=== PATIENT | male | born 1990 | race Caucasian/White ===

== ENCOUNTER 2018-03-18 23:18 | Emergency (ER) | payer BC ==
[2018-03-18] MEDS ORDERED: SUMAtriptan 6 MG/0.5 ML SDV SUBCUT ONE (23:55)
[2018-03-18] MEDS ORDERED: Ondansetron 4 MG Tab.DIS PO ONE (23:55)
--- NOTE | 2018-03-19 00:12 | EDM.PDOC ---
ED HPI GENERAL MEDICAL PROBLEM - General Chief Complaint: Gastrointestinal Problem Stated Complaint: HEADACHE Time Seen by Provider: 03/18/18 23:30 Source of Information: Reports: Patient, Family History Limitations: Reports: No Limitations - History of Present Illness INITIAL COMMENTS - FREE TEXT/NARRATIVE: 27-year-old male who gets to vascular headaches roughly a year, developed some posterior headache about 2 hours ago and it's now expanded over the top of his head and to the right side, throbbing with nausea and vomiting. No fevers or chills, no trauma. No visual symptoms. Onset: Sudden (2 hours ago) Location: Reports: Head Severity: Moderate Associated Symptoms: Reports: Nausea/Vomiting. Denies: Confusion, Fever/Chills , Shortness of Breath Abdominal Pain Score (Numeric/FACES): 5 headache Pain Score (Numeric/FACES): 7 - Related Data Allergies Allergy/AdvReac Type Severity Reaction Status Date / Time Penicillins Allergy Other Verified 03/18/18 23:37 Home Meds: Home Meds NK [No Known Home Meds] 03/18/18 [History] Past Medical History - Past Surgical History GI Surgical History: Reports: Appendectomy, Hernia, Inguinal Social & Family History - Tobacco Use Smoking Status *Q: Current Every Day Smoker Years of Tobacco use: 8 Packs/Tins Daily: 0.5 - Caffeine Use Caffeine Use: Reports: Soda - Recreational Drug Use Recreational Drug Use: No ED ROS GENERAL - Review of Systems Review Of Systems: See Below Constitutional: Denies: Fever, Chills Respiratory: Denies: Shortness of Breath Cardiovascular: Denies: Chest Pain GI/Abdominal: Reports: Nausea, Vomiting. Denies: Abdominal Pain Skin: Reports: No Symptoms Neurological: Reports: Dizziness, Headache ED EXAM, GENERAL - Physical Exam Exam: See Below Exam Limited By: No Limitations General Appearance: Alert, Mild Distress (Uncomfortable) Eye Exam: Bilateral Eye: EOMI, PERRL Head: Atraumatic Respiratory/Chest: No Respiratory Distress Neurological: Alert, Oriented, No Motor/Sensory Deficits Psychiatric: Normal Affect, Normal Mood Skin Exam: Warm, Dry Course - Vital Signs Last Recorded V/S: Last Vital Signs Temp 96.4 F 03/18/18 23:35 Pulse 78 03/18/18 23:35 Resp 16 03/18/18 23:35 BP 119/83 03/18/18 23:35 Pulse Ox 97 03/18/18 23:35 - Orders/Labs/Meds Meds: Medications Discontinued Medications Generic Name Dose Route Start Last Admin Trade Name Ye PRN Reason Stop Dose Admin Ondansetron HCl 4 mg 03/18/18 23:55 03/19/18 00:12 Zofran Odt PO 03/18/18 23:56 4 mg ONETIME ONE Administration Sumatriptan Succinate 6 mg 03/18/18 23:55 03/19/18 00:12 Imitrex SUBCUT 03/18/18 23:56 6 mg ONETIME ONE Administration - Re-Assessments/Exams Free Text/Narrative Re-Assessment/Exam: 03/19/18 00:11 Patient was given 6 mg of subcutaneous Imitrex and 4 mg of sublingual Zofran. 03/19/18 01:04 45 minutes after the medications his pain was almost gone and he was sleeping. He was ready to be discharged. Departure - Departure Time of Disposition: 01:11 Disposition: Home, Self-Care 01 Condition: Good Clinical Impression: Migraine Qualifiers: Migraine type: without aura Status migrainosus presence: without status migrainosus Intractability: not intractable Qualified Code(s): G43.009 - Migraine without aura, not intractable, without status migrainosus - Discharge Information Instructions: Migraine Headache, [id number] Referrals: PCP,None [Primary Care Provider] - Forms: ED Department Discharge Care Plan Goals: Rest tonight, advance diet and activity as tolerated. Consider Imitrex in the future, you seemed to respond well to that tonight. Discuss this with your primary doctor when you return home, or return tomorrow if worsening and you need further help before leaving.
== END 2018-03-19 01:11 | disposition home or self-care (01) ==
LOC: JP.ED 23:18
DX: G43.009 Migraine without aura, not intractable, without status migrainosus (principal); F17.210 Nicotine dependence, cigarettes, uncomplicated; Z88.0 Allergy status to penicillin
CPT/HCPCS: 96372; 99284; A9270; J3030